=== PATIENT | male | born 1975 | race Hispanic/Latino ===

== ENCOUNTER 2016-08-01 14:38 | Emergency (ER) | payer BC, OTHER ==
[~2016-08-01 14:38] MED LIST: Sodium Chloride Irrig Solution 250 ML BOT ONE
[2016-08-01] MEDS ORDERED: Adacel (T-DAP) 0.5 ML VIAL ONE (14:59)
[2016-08-01] MEDS ORDERED: Lidocaine 1% 20 ML MDV ONE (14:59)
[2016-08-01] MEDS ORDERED: Triple Antibiotic Oint 1 GM Packet ONE (15:34)
[2016-08-01] MEDS ORDERED: Cephalexin 500 MG CAP ONE (15:41)
== END 2016-08-01 15:45 | disposition home or self-care (01) ==
LOC: MADERS 14:38
DX: S51.811A Laceration without foreign body of right forearm, initial encounter (principal); Y29.XXXA Contact with blunt object, undetermined intent, initial encounter
CPT/HCPCS: 12002; 90471; 90715; J2001

== ENCOUNTER 2020-09-28 17:44 | Emergency (ER) | payer BC, OTHER ==
[~2020-09-28 17:44] MED LIST changes: +Iopamidol 370 76% 125 ML VIAL FS ONE; -Sodium Chloride Irrig Solution 250 ML BOT ONE
[2020-09-28 19:27] LABS: #Basophils 0.1 thou/uL (0.0-0.2); #Eosinphils 0.1 thou/uL (0.0-0.7); #Lymphocytes 1.2 thou/uL (1.20-3.40); #Monocytes 0.6 thou/uL (0.11-0.59); %Basophils 1.2 % (0.0-1.0); %Eosinophils 1.7 % (0.0-10.0); %Lymphocytes 17.1 % (21.0-51.0); %Monocytes 9.1 % (0.0-10.0); %Neutrophils 70.8 % (42.0-75.0); Hemoglobin 15.3 g/dL (14.0-18.0); Mean Corpuscular HGB CONC 32.2 g/dL (32.0-36.0); Platelet Count 218 thou/uL (130-400); RBC Distribution Width 11.9 % (11.5-14.5); Red Blood Cell (RBC) Count 5.47 mill/uL (4.70-6.10); White Blood Cell (WBC) Count 7.1 thou/uL (4.8-10.8)
[2020-09-28 19:37] LABS: INR-International Normal Ratio 0.9; Prothrombin Time 12.5 sec (12.0-14.7)
[2020-09-28 19:48] LABS: ALT (SGPT) 44 U/L (8-55); AST (SGOT) 21 U/L (5-34); Albumin 4.2 g/dL (3.5-5.0); Alkaline Phosphatase 83 U/L (40-110); Anion Gap 16 mmol/L (10-20); BUN (Urea Nitrogen) 8 mg/dL (8.9-20.6); Bilirubin, Total 0.7 mg/dL (0.2-1.2); Calc. Creatinine Clearance 0 mL/min (70-130); Calcium 8.9 mg/dL (7.8-10.44); Carbon Dioxide 26 mmol/L (22-29); Chloride 104 mmol/L (98-107); Glucose 90 mg/dL (70-105); Potassium 4.3 mmol/L (3.5-5.1); Protein, Total 7.2 g/dL (6.0-8.3); Sodium 142 mmol/L (136-145)
[2020-09-28] MEDS ORDERED: Aspirin Chewable 81 MG TAB ONE (20:05)
== END 2020-09-28 22:05 | disposition home or self-care (01) ==
LOC: MADERS 17:44
DX: I63.9 Cerebral infarction, unspecified (principal); G81.94 Hemiplegia, unspecified affecting left nondominant side
CPT/HCPCS: 36415; 70450; 70496; 70498; 80053; 84484; 85025; 85610; 93005; Q9967